=== PATIENT | male | born 1935 | race Two or more races ===

== ENCOUNTER 2021-10-19 17:49 | Emergency (ER) | payer OTHER ==
[~2021-10-19] VITALS: Ht 167.6 cm; Wt 63.5 kg
[2021-10-19] MEDS ORDERED: LOSARTAN POTASSI1 GM (18:53)
[2021-10-19] MEDS ORDERED: PANTOPRAZOLE SO40 M2 (18:54)
[2021-10-19] MEDS ORDERED: AMLODIPINE BESYL5 MG (18:55)
[2021-10-19] MEDS ORDERED: IRBESARTAN-HCT1 EAC1 (18:55)
[2021-10-19] MEDS ORDERED: SERTRALINE 50 MG (18:56)
== END 2021-10-19 22:19 | disposition home or self-care (01) ==
LOC: ER 17:49
DX: I62.00 Nontraumatic subdural hemorrhage, unspecified (principal)

== ENCOUNTER → 2024-11-14 | Emergency (ER) | payer OTHER ==
[~2024-11-14] VITALS: Ht 167.6 cm; Wt 72.6 kg
[~2024-11-14] MED LIST: AMLODIPINE BESYL5 MG; HYOSCYAMINE SULFATE 0.125 MG TAB.SUBL ONE; HYOSCYAMINE SULFATE 0.125 MG TAB.SUBL SL ONE; IRBESARTAN-HCT1 EAC1; LOSARTAN POTASSI1 GM; METOCLOPRAMIDE HCL 5 MG/ML VIAL IM STA; METOCLOPRAMIDE HCL 5 MG/ML VIAL ONE; PANTOPRAZOLE SO40 M2; PEPCID AC20 MG PO; SERTRALINE 50 MG
== END | disposition home or self-care (01) ==
LOC: ER 21:09
DX: R06.6 Hiccough (principal); I10 Essential (primary) hypertension
CPT/HCPCS: 96372; 99282; J2765